=== PATIENT | male | born 1945 | race Caucasian/White ===

== ENCOUNTER → 2016-07-14 | Outpatient (CLI) | payer OTHER, MEDICARE | LOC: BHFA 13:15 | PROVIDERS: ATTEND Internal Medicine Cardiovascular Disease | DX: I47.2 Ventricular tachycardia (principal) ==

== ENCOUNTER 2016-07-18 13:00 | Inpatient (IN) | payer OTHER, MEDICARE ==
[2016-07-18] MEDS ORDERED: NS 1,000 ML IV ONE (13:06)
--- NOTE | 2016-07-18 13:30 | CPEKG ---
Heart Rate: 80 RR Interval: 750 P-R Interval: 112 QRSD Interval: 146 QT Interval: 516 QTC Interval: 596 P [place]: 0 QRS [place]: 256 T Wave [place]: 58 EKG Severity - ABNORMAL ECG - EKG Impression: VENTRICULAR-PACED RHYTHM Electronically Signed By: Angela Lopez 18-Jul-2016 14:10:23
[2016-07-18 13:44] LABS: ADD DIFF? NO; ADD MORPH? NO; ADD SCAN? NO; ATYPICAL LYMPHOCYTE FLAG 20 (0-99); FRAGMENT RBC FLAG 0 (0-99); HEMATOCRIT 45.6 % (40.0-51.0); HEMOGLOBIN 16.3 g/dL (13.7-17.5); LEFT SHIFT FLG 0 (0-99); LIPEMIA HEMOLYSIS FLAG 90 (0-99); MEAN CELL HEMOGLOBIN 33.6 pg (27.9-34.1); MEAN CELL HEMOGLOBIN CONCENTR. 35.7 g/dL (32.4-36.7); MEAN PLATELET VOLUME 10.5 fL (8.7-11.7); PLATELET CLUMPS FLAG 0 (0-99); PLATELET COUNT 126 10^3/uL (150-400); RED BLOOD CELL COUNT 4.85 10^6/uL (4.40-6.38); RED CELL DISTRIBUTION WIDTH 12.3 % (11.5-15.2)
[2016-07-18 13:56] LABS: APTT 30.8 SEC (23.0-38.0); INR 1.15 (0.83-1.16); PROTIME(PATIENT) 14.7 SEC (12.0-15.0)
[2016-07-18 13:57] LABS: ANION GAP 11 mEq/L (8-16); CALCIUM 8.8 mg/dL (8.5-10.4); CARBON DIOXIDE 25 mEq/l (22-31); CHLORIDE 103 mEq/L (97-110); CHOLESTEROL 144 mg/dL (140-220); CHOLESTEROL/HDL RATIO 2.94 RATIO (1.00-4.97); CREATININE 0.8 mg/dL (0.7-1.3); GLOMERULAR FILTRATION RATE > 60; GLUCOSE 93 mg/dL (70-100); HIGH DENSITY LIPOPROTEIN 49 mg/dL (40-65); LDL/HDL RATIO 1.57 RATIO (1.00-3.64); LOW DENSITY LIPOPROTEIN 77 mg/dL (80-100); MAGNESIUM 1.9 mg/dL (1.6-2.3); NON-HIGH DENSITY LIPOPROTEIN 95 mg/dL (90-129); POTASSIUM 4.3 mEq/L (3.5-5.2); SODIUM 139 mEq/L (134-144); TRIGLYCERIDE 91 mg/dL (40-150); VERY LOW DENSITY LIPOPROTEINS 18 mg/dL (8-25)
[2016-07-18] MEDS ORDERED: IOPAMIDOL (ISOVUE-370) 150 ML BTL IV ONE (14:22)
[2016-07-18] MEDS ORDERED: LIDOCAINE 1% 30 ML SDV ONE (14:22)
[2016-07-18] MEDS ORDERED: BUPIVACAINE 0.5% 30 ML SDV ONE (14:24)
[2016-07-18] MEDS ORDERED: MIDAZOLAM 2 MG/2 ML VIAL ONE (14:35)
[2016-07-18] MEDS ORDERED: fentaNYL 100 MCG/2 ML INJ ONE (14:43)
[2016-07-18] MEDS ORDERED: PROPOFOL/EMULSION 500 MG/50 ML BOTTLE IV ONE ×2 (14:44→16:16)
[2016-07-18] MEDS ORDERED: epHEDrine SULFATE 10 MG/ML SYR ONE (15:05)
[2016-07-18] MEDS ORDERED: ISOPROTERENOL HCL 0.2 MG/ML 5ML AMP ONE (15:19)
[2016-07-18] MEDS ORDERED: HEPARIN 10,000 UNIT/10 ML MDV ONE (15:19)
--- NOTE | 2016-07-18 17:16 | PDDXCAT ---
Diagnostic Cath Note - . Date: 07/18/16 Change Agent: Josh Indication: Non-sustained (<30 sec) polymorphic ventricular tachycardia - Procedure Access: right groin Procedure: coronary angiography - Materials Left Heart Cath size: 6F Left Heart Cath materials: JL4.0, JR4.0 - Findings-Left Heart Catheterization LM: Normal LAD: Stent in mid LAD patent. D1 and D2 patent. LCX: Nondominant, no sig. disease. RCA: 30-40% proximal RCA disease. Stent in mid RCA patent. Complications: None Estimated blood loss: <50ml Closure method: Angioseal Assessment: Stents in RCA and LAD patent. Plan: Proceed with EP study Patient Problems: Problems Problem Status Diagnosed Bradycardia Acute Ventricular tachycardia Acute
--- NOTE | 2016-07-18 17:17 | EPPROC ---
Electrophysiology Procedure Note: DIAGNOSTIC ELECTROPHYSIOLOGIC STUDY INDICATION: VT seen on pacemaker check PROCEDURE: Catheters & Anesthesia: The patient arrived in the Electrophysiology Laboratory in the fasting state. The right clavicular region, right groin, & left groin area were prepped & draped in the usual sterile manner. Sedation was administered by Dr. Benjy Ruiz Appropriate non-invasive blood pressure, pulse oximetry & end-tidal CO2 monitoring was established. Coronary angiogram was done prior to EP study and has been dictated separately. One #7 Nicaraguan deflectable quadrapolar catheter was advanced to the anteroseptal right ventricle via the right femoral vein. Programmed stimulation was performed from the right atrium, right ventricle and coronary sinus (left atrium). Parahisian pacing demonstrated constant H-A interval with changing V-A intervals and stimulus-A intervals during capture and loss of capture of proximal RBB proving retrograde conduction over AV node. Programmed stimulation from the RV apex with isoproterenol induced hemodynamically unstable (SBP in 60s on arterial line) sustained VT, CL 290-310 ms, LBBB, superior axis. The catheter was removed. The patient was transferred to the cardiovascular holding area in stable condition. Vascular access sheaths were removed in the holding area. There were no apparent complications. CONCLUSIONS 1. Patient with CAD and stents to LAD and RCA patent. 2. Sustained monomorphic VT seen on EP study. RECOMMENDATIONS 1. Continue beta liyah therapy 2. Recommend upgrade of pacemaker to ICD Patient Problems: Problems Problem Status Diagnosed Bradycardia Acute Ventricular tachycardia Acute
[2016-07-18] MEDS ORDERED: ALBUTEROL 60 PUFFS/8 GM MDI IH PRN (19:49)
[2016-07-19] MEDS: CARVEDILOL 3.125 MG TAB PO SCH ×2 (08:38→17:26)
[2016-07-19] MEDS ORDERED: ceFAZolin 2 GM/DEXTROSE 100 ML IV ONE ×2 (10:28→10:30)
[2016-07-19] MEDS ORDERED: diphenhydrAMINE 25 MG CAP PO ONE (11:00)
[2016-07-19] MEDS ORDERED: DIAZEPAM 5 MG TAB PO ONE (11:00)
[2016-07-19] MEDS ORDERED: NS 1,000 ML IV SCH (11:00)
[2016-07-19] MEDS ORDERED: BACITRACIN IRRIGATION/NS 50,000 UNITS/1,000 ML BTL IRR ONE (11:00)
[2016-07-19] MEDS ORDERED: fentaNYL 100 MCG/2 ML INJ ONE ×2 (11:02→11:27)
[2016-07-19] MEDS ORDERED: LIDOCAINE 1% 30 ML SDV ONE (11:02)
[2016-07-19] MEDS ORDERED: MIDAZOLAM 2 MG/2 ML VIAL ONE (11:02)
[2016-07-19] MEDS ORDERED: BUPIVACAINE 0.5% 30 ML SDV ONE (11:03)
[2016-07-19] MEDS ORDERED: IOPAMIDOL (ISOVUE-300) 50 ML VIAL IV ONE (11:03)
[2016-07-19] MEDS: ATORVASTATIN CALCIUM 40 MG TAB PO SCH (11:11)
--- NOTE | 2016-07-19 11:25 | ECHO ---
[id number] + + [address] : : [place] [id number] : : [phone] + + Adult Echocardiographic Report + -------+ :Name: DELMAR IBARRA DStudy Date: 07/19/2016 10:52 AM : : Hospital Admission Number: [id number] Locati on: [facility]: :: 1945 Gender: Male Height: 71 in : :Age: 70 yrs Race: WH Weight: 157 lb : :Reason For Study: Eval LV Fx : : BSA: 1.9 meter s2 : :History: Pre ICD : + -------+ MMode/2D Measurements & Calculations IVSd: 1.1 cm LVIDd: 4.6 cm FS: 32.5 % LVPWd: 1.0 cm LVIDs: 3.1 cm EDV(Teich): 96.5 ml ESV(Teich): 37.7 ml EF(Teich): 60.9 % Normal Measurement Values: + + :LVIDd (3.5-5.7cm) IVSd (0.6-1.1cm) LVPWd (0.6-1.1cm) Aortic Root (2.0-3.7cm)Left Atrium (1.5-4.0cm): :LV Vol(d) (76-115ml) LV Vol(s) (29-48ml) Ejec Fraction (50-65%)PV Vitaliy (0.6- 1.2m/s) TV Vitaliy (0.4-1.0m/s) : :MV E Vitaliy (0.8-1.0m/s)MV A Vitaliy (0.3-1.0m/s)LVOT Vitaliy (0.7-1.2m/s) Asc Ao Vitaliy ( 0.9-1.8m/s) : + + Doppler Measurements & Calculations TR max vitaliy: 234.8 cm/sec TR max P.1 mmHg RAP systole: 5.0 mmHg RVSP(TR): 27.1 mmHg Left Ventricle The left ventricular ejection fraction is normal. Ejection Fraction = 61%. No regional wall motion abnormalities noted. Right Ventricle There is a pacemaker lead in the right ventricle. Tricuspid Valve There is mild tricuspid regurgitation. Conclusion This is a limited echo to eval left venticular function. The left ventricular ejection fraction is normal. Ejection Fraction = 61%. No regional wall motion abnormalities noted. There is mild tricuspid regurgitation. Final Reading Physician: Porfirio Moreno MD electronically signed on 07/19/2016 11:24 AM Ordering Physician: Porfirio Moreno Performed By: Darrel Brown, CAREYCS
[2016-07-19] MEDS ORDERED: PROPOFOL/EMULSION 500 MG/50 ML BOTTLE IV ONE (11:26)
[2016-07-19] MEDS: ASPIRIN 81 MG CHEWABLE TAB PO SCH (12:54)
--- NOTE | 2016-07-19 13:08 | EPPROC ---
Electrophysiology Procedure Note: PROCEDURE PERFORMED: 1. Implantation of an A-V Implantable Cardioverter Defibrillator 2. Subclavian vein angiography 3. Fluoroscopy 4. Extraction of RV lead 5. Pocket revision INDICATION: Previously placed dual chamber pacemaker VT seen on pacemaker check Sustained monomorphic VT seen on pacemaker check. Patient had prior subtotal occlusion of dominant RCA and VT morphology is c.w. distal LV septal origin, c.w. scar in RCA territory PROCEDURE NOTE: Patient presented to the cardiac catheterization laboratory in a fasting, postabsorptive state. The left infraclavicular area was prepped and draped in the usual sterile fashion. Anesthesiologist administered sedation. Lidocaine plus bupivacaine was used for local anesthesia. Left subclavian venography was performed by injection of iodinated contrast into the left antecubital vein. This was done to assure patency of the vein Using a combination of blunt and sharp dissection and electrocautery, the dissection was carried down to the prepectoral fascia. Pacemaker pocket was opened. All bleeding was controlled with electrocautery. Fluoroscopy was utilized during the entire procedure for venous access and placement of the leads. Using a direct stick technique the left extrathoracic axillary vein was accessed with 1 stick using the modified Seldinger technique. Placement of the guide wire into the venous system was confirmed by low pressure blood return and also by visualizing the guide wire advancing into the inferior vena cava. The existing RV lead was freed from the subcutaneous tissue, suture sleeve was freed. Stylet was advanced into the lead, active fixation screw retracted and lead was easily removed from the RV. #9 Fr sheath was advanced under fluoroscopic guidance over the guide wire . An active fixation ventricular ICD lead was advanced into the right ventricular apex and screwed in place. However there was diaphragmatic stimulation at the RV apex and so lead was moved to distal RV septum. The peel away sheath was removed. Pacing thresholds, sensing parameters and leads impedances were measured. There was no diaphragmatic stimulation at maximum output. The lead was sutured to the prepectoral fascia with 2 non-absorbable sutures. The pocket was again inspected for any bleeding. The leads were attached to the ICD securely. The ICD was inserted into the pocket and secured in place with a nonabsorbable suture. Fluoroscopy was performed in BOLDEN and BRUNEIAN planes to verify right sided placement of the leads. Also fluoroscopy of the ICD pocket was performed. Defibrillation testing was not performed. The ICD pocket was closed in 3 layers with absorbable monocryl sutures and lisa. Appropriate dressing was applied. The patient left the cardiac catheterization laboratory in stable condition. Serial Numbers: 1. Device Biotronik Iperia DRT DF4 ProMRI SN [id number] 2. Atrial Lead Biotronik Setrox S 53 SN [id number] 3. Ventricular Lead Biotronik Protego S 65 SN [id number] Stimulation Thresholds & Impedance Measurements: 1. Atrial Lead 0.9 V 0.4 ms P 1.4 mV 521 ohm 2. Ventricular Lead 0.4 V 0.4 ms 681 ohm R wave 11.7 mV Defibrillation testing: Not done Pacing Parameters: 1. Pacing mode DDD-CLS 2. Lower rate 50 ppm 3. Upper tracking rate 130 ppm 4. Upper sensor rate 130 ppm Tachycardia therapy parameters: VF zone: Detection 200 bpm ATP while charging First therapy 40Joule Subsequent therapies 40Joule VT zone: Detection 171 bpm First therapy ATP x 4 Second therapy 40Joule Subsequent therapies 40 Joule Patient Problems: Problems Problem Status Diagnosed Bradycardia Acute Ventricular tachycardia Acute
--- NOTE | 2016-07-19 13:19 | CPEKG ---
Heart Rate: 70 RR Interval: 857 P-R Interval: 364 QRSD Interval: 130 QT Interval: 440 QTC Interval: 475 P [place]: 0 QRS [place]: -70 T Wave [place]: 95 EKG Severity - ABNORMAL ECG - EKG Impression: A-V DUAL-PACED RHYTHM WITH SOME INHIBITION Electronically Signed By: Angela Lopez 19-Jul-2016 16:23:41
--- NOTE | 2016-07-19 14:07 | DX ---
Portable Chest, 13:30 History: Post pacemaker placement Comparison: June 02, 2015 Findings: A new left chest wall pacer device has been placed. There are overlying skin lisa. 2 pac er wires remain in place. Surgical sutures remain overlying the left mediastinum. There is no pneumot horax. There is some chronic lingular scarring. Impression: Excellent pacer placement without pneumothorax.
[2016-07-19] MEDS: CLOPIDOGREL BISULFATE 75 MG TAB PO SCH (14:52)
[2016-07-19] MEDS ORDERED: HYDROCODONE/APAP 5/325 TAB PO PRN (20:38)
[2016-07-20 05:12] LABS: % IMMATURE GRANULYOCYTES 0.2 % (0.0-1.1); ABSOLUTE IMMATURE GRANULOCYTES 0.01 10^3/uL (0.00-0.10); ADD DIFF? NO; ADD MORPH? NO; ADD SCAN? NO; ATYPICAL LYMPHOCYTE FLAG 20 (0-99); FRAGMENT RBC FLAG 0 (0-99); HEMATOCRIT 42.3 % (40.0-51.0); LEFT SHIFT FLG 0 (0-99); LIPEMIA HEMOLYSIS FLAG 90 (0-99); MEAN CELL HEMOGLOBIN 33.2 pg (27.9-34.1); MEAN CELL HEMOGLOBIN CONCENTR. 35.5 g/dL (32.4-36.7); MEAN CELL VOLUME 93.6 fL (81.5-99.8); PLATELET CLUMPS FLAG 0 (0-99); PLATELET COUNT 111 10^3/uL (150-400); RED BLOOD CELL COUNT 4.52 10^6/uL (4.40-6.38); RED CELL DISTRIBUTION WIDTH 12.1 % (11.5-15.2)
[2016-07-20 05:39] LABS: ANION GAP 9 mEq/L (8-16); CALCIUM 8.2 mg/dL (8.5-10.4); CARBON DIOXIDE 26 mEq/l (22-31); CHLORIDE 103 mEq/L (97-110); CREATININE 0.7 mg/dL (0.7-1.3); GLOMERULAR FILTRATION RATE > 60; GLUCOSE 93 mg/dL (70-100); POTASSIUM 4.2 mEq/L (3.5-5.2); SODIUM 138 mEq/L (134-144)
[2016-07-20 08:11] VITALS: BP 132/74; PULSE 60; RESP 18; TEMP 98.8; O2SAT 92
[2016-07-20] MEDS: CARVEDILOL 3.125 MG TAB PO SCH (08:15)
[2016-07-20] MEDS: ATORVASTATIN CALCIUM 40 MG TAB PO SCH (08:15)
[2016-07-20] MEDS: CLOPIDOGREL BISULFATE 75 MG TAB PO SCH (08:15)
[2016-07-20] MEDS: ASPIRIN 81 MG CHEWABLE TAB PO SCH (08:16)
--- NOTE | 2016-07-20 08:55 | DX ---
PA and Lateral Chest 8:09 a.m. Indication: Pacemaker placement. Comparison: Portable chest dated July 19, 2016 Findings: The dual lead left anterior chest wall pacemaker/AICD is well positioned. Skin lisa over lie the left chest wall. No pneumothorax, edema or mediastinal hematoma. Heart size normal. Lungs are clear. Surgical clips left hilum and linear scarring left base are unchanged. Impression: 1. Clear lungs. No edema or pneumothorax. 2. Dual-lead pacemaker/AICD well positioned.
[2016-07-20] MEDS ORDERED: OMEGA-3 FATTY ACIDS 1,000 MG CAP PO SCH (09:00)
--- NOTE | 2016-07-20 09:12 | CPEKG ---
Heart Rate: 55 RR Interval: 1091 P-R Interval: 408 QRSD Interval: 148 QT Interval: 416 QTC Interval: 398 P [place]: 20 QRS [place]: 37 T Wave [place]: 50 EKG Severity - ABNORMAL ECG - EKG Impression: ATRIAL-PACED COMPLEXES EKG Impression: FIRST DEGREE AV BLOCK EKG Impression: LEFT ATRIAL ABNORMALITY EKG Impression: RIGHT BUNDLE BRANCH BLOCK EKG Impression: PROBABLE INFERIOR INFARCT, OLD EKG Impression: ST DEPRESSION, CONSIDER ISCHEMIA, ANT-LAT LDS - MORE MARKED THAN PREVIOUS RBBB EKG Impression: PATTERN IN THIS PATIENT Electronically Signed By: Angela Lopez 20-Jul-2016 09:50:54
--- NOTE | 2016-07-20 12:08 | GDS ---
[f rep st] DISCHARGE SUMMARY DISCHARGE DIAGNOSES: 1. Sustained ventricular tachycardia, status post upgrade from a pacemaker to an ICD. 2. History of coronary artery disease with prior stenting to the LAD and RCA, which are patent by ca theterization on July 18. 3. Alcohol abuse. 4. Hyperlipidemia. HOSPITAL COURSE: For detailed H and P, please see prior dictation. Briefly, the patient is a 70-yea r-old male with a history of coronary artery disease, status post stenting to his right coronary hoda ry and left anterior descending artery in November 2015. At that time, he was identified to have ventric ular tachycardia. He also has a pacemaker for sick sinus syndrome. Recently, he was noted to have r ecurrent nonsustained ventricular tachycardia. He was complaining of fatigue but was otherwise asymp tomatic. Given that he had not had symptoms prior to stenting in November, decision was made to proceed with a coronary angiogram which was performed by Dr. Moreno on July 18. His stents were patent. Lef t circumflex had no significant disease. Right coronary artery had a 30% to 40% proximal disease. H e then proceeded with an EP study and was able to induce sustained ventricular tachycardia. The foll owing day, his pacemaker was upgraded to a Biotronik ICD. At this time, the right ventricular lead w as removed as well. The following day, the patient denied any symptoms of chest discomfort or shortn ess of breath. He denied any palpitations. His device was interrogated and working properly. His E KG the day of discharge revealed a pacing at a rate of 55. He has a right bundle branch block and di ffuse ST-T wave changes. Echocardiogram during his hospitalization revealed preserved LV function wi th an ejection fraction of 61%. There is mild tricuspid regurgitation. His x-ray the day of dischar was negative for pneumothorax. PHYSICAL EXAMINATION: GENERAL: Patient appears in no acute distress. VITAL SIGNS: Blood pressure 132/74, heart rate 60, oxygen saturation 92% on room air. Afebrile. NECK: No carotid bruits or JVD present. LUNGS: Clear to auscultation. No wheezes, rhonchi, or crackles auscultated. CARDIAC: R egular rate and rhythm. CHEST WALL: His ICD pocket is clean, intact, without any evidence of infect ion or hematoma. EXTREMITIES: His groin, where access was obtained for the EP study, is clean, inta ct, without any evidence of infection or hematoma. MEDICATIONS: He will continue Plavix 75 mg daily, Coreg 3.125 mg b.i.d., Lipitor 40 mg daily, aspiri n 81 mg daily, albuterol p.r.n., fish oil 1000 mg daily. PLAN: The patient is currently stable and ready for discharge home. He has been given both groin an d ICD precautions. He will follow up as scheduled in our office for wound check and pacer interrogat ion in 1 week. Alcohol cessation was discussed with him today. Greater than 30 minutes was spent coordinating the patient's care today. /[id number]/MODL
== END 2016-07-20 11:54 | disposition home or self-care (01) | DRG 225 ==
LOC: FCATH 13:00 → F2W 16:03 → OBSVTOIN 17:16 → F2W 18:30
PROVIDERS: ADMIT Internal Medicine Cardiovascular Disease; ATTEND Internal Medicine Cardiovascular Disease
PROC: B2111ZZ Fluoroscopy of Multiple Coronary Arteries using Low Osmolar Contrast (ICD-10-PCS; 2016-07-18)
PROC: B2151ZZ Fluoroscopy of Left Heart using Low Osmolar Contrast (ICD-10-PCS; 2016-07-18)
PROC: 4A023N7 Measurement of Cardiac Sampling and Pressure, Left Heart, Percutaneous Approach (ICD-10-PCS; 2016-07-18)
PROC: 4A0 Measurement and Monitoring, Physiological Systems, Measurement (ICD-10-PCS; 2016-07-18)
PROC: 02H63KZ Insertion of Defibrillator Lead into Right Atrium, Percutaneous Approach (ICD-10-PCS; principal; 2016-07-19)
PROC: 02PA3MZ Removal of Cardiac Lead from Heart, Percutaneous Approach (ICD-10-PCS; principal; 2016-07-19)
PROC: 0JH608Z Insertion of Defibrillator Generator into Chest Subcutaneous Tissue and Fascia, Open Approach (ICD-10-PCS; principal; 2016-07-19)
PROC: 02HK3KZ Insertion of Defibrillator Lead into Right Ventricle, Percutaneous Approach (ICD-10-PCS; principal; 2016-07-19)
PROC: 02PA3NZ Removal of Intracardiac Pacemaker from Heart, Percutaneous Approach (ICD-10-PCS; principal; 2016-07-19)
DX: I47.2 Ventricular tachycardia (principal); I45.10 Unspecified right bundle-branch block; I25.10 Atherosclerotic heart disease of native coronary artery without angina pectoris; E78.5 Hyperlipidemia, unspecified; F10.10 Alcohol abuse, uncomplicated; Z95.5 Presence of coronary angioplasty implant and graft
CPT/HCPCS: C1721; C1731; C1760; C1769; C1777; J0690; J1644; J2250; J2704; J3010; Q9967

== ENCOUNTER → 2018-01-11 | Outpatient (CLI) | payer OTHER, MEDICARE | LOC: BHFA 13:15 | PROVIDERS: ATTEND Internal Medicine Cardiovascular Disease | DX: R94.31 Abnormal electrocardiogram [ECG] [EKG] (principal) ==